=== PATIENT | male | born 1970 | race Caucasian/White ===

== ENCOUNTER 2024-04-24 15:09 | Emergency (ER) | payer BC ==
[2024-04-24] MEDS: Lidocaine 1% 10 ML MDV INJECT ONE (15:59)
[2024-04-24] MEDS ORDERED: Bacitracin Oint 1 GM U/D Packet TOP ONE (16:02)
[2024-04-24] MEDS: Diphtheria,Pertussis(Acell),Tetanus Vaccine 0.5 ML Syringe IM ONE (18:30)
== END 2024-04-24 16:19 | disposition home or self-care (01) ==
LOC: VM.ED 15:09
DX: S61.411A Laceration without foreign body of right hand, initial encounter (principal); W26.8XXA Contact with other sharp object(s), not elsewhere classified, initial encounter
CPT/HCPCS: 12002; 99282; 99283; J3490